=== PATIENT | male | born 1965 | race Caucasian/White ===

== ENCOUNTER → 2024-12-06 09:59 | Outpatient (REF) | payer BC, SELFPAY | LOC: RCS 09:59 | PROVIDERS: ATTENDING PHYSICIAN Student in an Organized Health Care Education/Training Program; FAMILY PHYSICIAN Family Medicine | DX: Z01.818 Encounter for other preprocedural examination (principal) | CPT/HCPCS: 93005 ==

== ENCOUNTER 2024-12-07 06:06 | Day surgery (SDC) | payer BC, SELFPAY ==
[2024-12-07] VITALS (9 sets, daily range): BP systolic 123–138; BP diastolic 61–86
[2024-12-07] MEDS: TYLENOL 1000 MG PO (12:05)
[2024-12-07] MEDS: NORMOSOL-R/PLASMALYTE-A 1000 IV (12:07)
--- NOTE | 2024-12-07 14:25 | W.IMMPOSTOP ---
Surgical Immed Post Op Note
-
Primary Surgeon: Butch Moore MD
Assisting Surgeon:
Pre-op Diagnosis: left knee medial meniscus tear
Post-op Diagnosis: left knee medial meniscus tear, medial plica
Procedure Performed: arthroscopic left knee partial medial meniscectomy and debridement
Anesthesia Type: general with local
Specimen / Cultures: none
Estimated Blood Loss: 1mL
Complications: none apparent
Tourniquet time: 35 minutes @ 250 mmHg
Operative Findings: oblique tear posterior horn medial meniscus, medial plica
Operative dictation #: [id number]
[2024-12-07] MEDS: DILAUDID 0.5 MG IV (14:51)
--- NOTE | 2024-12-07 15:59 | SUR.PHASEII ---
Report given to [place], RN and pt transported to [facility]
== END 2024-12-07 16:25 | disposition home or self-care (01) ==
LOC: SDS 06:06
PROVIDERS: ATTENDING PHYSICIAN Student in an Organized Health Care Education/Training Program
DX: S83.242A Other tear of medial meniscus, current injury, left knee, initial encounter (principal); X58.XXXA Exposure to other specified factors, initial encounter
CPT/HCPCS: 29881